=== PATIENT | female | born 1975 | race Two or more races ===

== ENCOUNTER 2017-04-11 07:41 | Emergency (ER) | payer OTHER ==
--- NOTE | ~2017-04-11 | US67 ---
[facility] A Service of [facility] RADIOLOGY TEXT RESULTS PATIENT: MALLORY PASTOR LOCATION: [facility] : 79 UNIT #: [id number] AGE: [address]: Negro Gresham MD SEX: F ORDER DR: [id number] [facility] [address] [place], [place] [address] [id number] E MR#: [id number] #: [id number] NAME: MALLORY PASTOR : 1975 SEX: F STUDY DATE/TIME: 04/11/2017 9:29 UNIT: [facility] ROOM: STUDY DESCRIPTION: Gallbladder Attending Physician: Negro Gresham M.D. Ordering Physician: Negro Gresham M.D. Primary Care Physician: [facility] MEDICAL IMAGING REPORT This report is preliminary unless electronic signature is present EXAM Gallbladder ultrasound 04/11/2017 HISTORY Right upper quadrant abdominal pain with nausea and vomiting for 10 days worsening in the last 2 days. FINDINGS Ultrasound examination of the gallbladder is negative. There is no cholelithiasis, gallbladder wall thickening, or bile duct dilatation. The visualized liver is negative. IMPRESSION Negative gallbladder ultrasound examination. Dictated by... Jasen Adam M.D. THIS IS AN ELECTRONICALLY VERIFIED REPORT Jasen Adam M.D. at 04/12/2017 8:02 AM NAYA/[email or web address] TD: 04/11/2017 11:27 JOB #: [id number] MEDICAL IMAGING REPORT Page 1 of 1 COPY
[~2017-04-11 07:41] MED LIST: FLEXERIL10 MG PO; NO MEDICATIONS
[2017-04-11 08:27] LABS: BASOPHIL# 0.1 X10e3 (0-0.3); BASOPHIL% 0.7 % (0-2.5); EOSINOPHIL# 0.1 X10e3 (0-0.7); EOSINOPHIL% 1.3 % (0.0-7.0); HEMATOCRIT 40.6 % (35.0-45.0); HEMOGLOBIN 13.5 gm/dL (12.0-16.0); LYMPHOCYTE# 2.1 X10e3 (1.0-3.5); LYMPHOCYTE% 28.3 % (17.0-45.0); MEAN CELL VOLUME 91.6 FL (83-96); MEAN CORPUSCULAR HEMOGLOBIN 30.5 PG (28-34); MEAN CORPUSCULAR HGB CONC 33.3 g/dL (30-36); MEAN PLATELET VOLUME 8.4 FL (6.5-11.5); MONOCYTE# 0.4 X10e3 (0-1.0); MONOCYTE% 5.5 % (3.0-12.0); NEUTROPHIL# 4.9 X10e3 (1.5-7.1); NEUTROPHIL% 64.2 % (40-75); PLATELET COUNT 332 X10e3 (140-420); RED BLOOD COUNT 4.43 X10e (3.90-5.30); WHITE BLOOD COUNT 7.6 X10e3 (4.0-10.5)
[2017-04-11 08:29] LABS: DIFF IND NO
[2017-04-11 08:53] LABS: ALBUMIN SERUM 3.8 g/dL (3.5-5.0); BILIRUBIN, DIRECT 0.1 mg/dL (0.0-0.2); BILIRUBIN,INDIRECT 0.9 mg/dL (0.0-0.9); CREATININE SERUM 0.5 mg/dL (0.6-1.4); GLOM FILT RATE Estimated 121.9 mL/min (>60); POTASSIUM 3.7 mmol/L (3.5-5.1); PROTEIN TOTAL SERUM 6.7 g/dL (6.0-8.3)
[2017-04-11 08:59] LABS: URINE SOURCE CLEAN CATCH
[2017-04-11 09:03] LABS: URINE APPEARANCE CLEAR; URINE BILIRUBIN NEG (NEG); URINE BLOOD NEG (NEG); URINE COLOR YELLOW; URINE GLUCOSE NEG (NEG); URINE KETONE NEG (NEG); URINE LEUKOCYTE ESTERASE NEG (NEG); URINE NITRATE NEG (NEG); URINE PROTEIN NEG (NEG)
[2017-04-11 09:07] LABS: CULTURE INDICATED? NO
== END 2017-04-11 10:46 | disposition home or self-care (01) ==
LOC: CED 07:41
PROVIDERS: Emergency Medicine
DX: R10.13 Epigastric pain (principal); R11.2 Nausea with vomiting, unspecified; Z90.710 Acquired absence of both cervix and uterus
CPT/HCPCS: 36415; 76705; 80048; 80076; 81003; 82150; 83690; 85025; 96361; 96374; 96375; 99284; J2270; J2405